=== PATIENT | female | born 1970 | race Caucasian/White ===

== ENCOUNTER 2023-12-27 23:15 | Emergency (ER) | payer SELFPAY | END 2023-12-27 23:39 | disposition home or self-care (01) | LOC: MW.ED 23:15 | DX: Z02.89 Encounter for other administrative examinations (principal); S70.11XA Contusion of right thigh, initial encounter; S50.01XA Contusion of right elbow, initial encounter; M25.551 Pain in right hip; Z75.8 Other problems related to medical facilities and other health care; Z88.5 Allergy status to narcotic agent; Y04.8XXA Assault by other bodily force, initial encounter | CPT/HCPCS: 99283 ==